=== PATIENT | male | born 1995 ===

== ENCOUNTER 2024-05-12 21:52 | Outpatient (REF) | payer SELFPAY ==
[2024-05-12 20:14] LABS: HCT 48.1 % (40.0-50.0); HGB 15.8 g/dL (13.5-17.5); MCHC 32.8 % (32.0-36.0); MCV 85 fL (80-95); MPV 12.4 fL (8.0-11.0); Platelet Count 197 10^3/uL (130-400); RBC 5.65 10^6/uL (4.36-5.78); RDW 13.2 % (11.8-14.1); RDW-SD 41.1 fL; WBC 7.59 10^3/uL (4.4-10.8)
[2024-05-12 20:36] LABS: ALT 29 U/L (16-63); AST 44 U/L (15-37); Albumin 4.2 g/dL (3.4-5.0); Alkaline Phosphatase 83 U/L (46-116); Anion Gap 7.9 mmol/L (3-11); BUN 17 mg/dL (7-18); Bilirubin, Total 0.62 mg/dL (0.2-1.0); CO2 28.1 mmol/L (21.0-32.0); CREATININE 0.8 mg/dL (0.70-1.30); Calcium 9.5 mg/dL (8.5-10.1); Chloride 104 mmol/L (98-107); Estimated GFR 123.63 (mL/min/1.73m2); Glucose 91 mg/dL (74-106); Potassium 4.4 mmol/L (3.5-5.1); Sodium 140 mmol/L (136-145); TSH (W/Ref FT4) 1.05 uIU/mL (0.36-3.74); Total Protein 8.3 g/dL (6.4-8.2)
[2024-05-15 15:02] LABS: Helicobacter pylori Ag, Feces Negative (Negative)
== END 2024-05-12 21:53 | disposition home or self-care (01) ==
LOC: NCHCN 21:52
PROVIDERS: Visit Provider Nurse Practitioner Family
DX: R53.83 Other fatigue (principal); F52.21 Male erectile disorder; Z13.1 Encounter for screening for diabetes mellitus
CPT/HCPCS: 80053; 83631; 85027; 87338; 83630; 84443